=== PATIENT | male | born 1985 | race Caucasian/White ===

== ENCOUNTER 2022-12-31 03:16 | Emergency (ER) | payer SELFPAY ==
[~2022-12-31] VITALS: Ht 185.4 cm; Wt 79.4 kg
[2022-12-31 03:29] VITALS: BP_SYST 140; PULSE 100; RESP 16; TEMP 98.2; O2SAT 96
[2022-12-31 03:50] VITALS: BP_SYST 140; PULSE 100; RESP 16; TEMP 98.2; O2SAT 96
== END 2022-12-31 03:51 | disposition home or self-care (01) ==
LOC: SED 03:16
DX: F10.129 Alcohol abuse with intoxication, unspecified (principal); Z79.899 Other long term (current) drug therapy; Y90.6 Blood alcohol level of 120-199 mg/100 ml
CPT/HCPCS: 99283